=== PATIENT | female | born 1965 | race Caucasian/White ===

== ENCOUNTER 2017-10-18 16:08 | Emergency (ER) | payer OTHER | END 2017-10-18 17:50 | disposition home or self-care (01) | LOC: ER 16:08 | DX: J01.90 Acute sinusitis, unspecified (principal); J20.9 Acute bronchitis, unspecified; M43.6 Torticollis; M79.7 Fibromyalgia; K21.9 Gastro-esophageal reflux disease without esophagitis; E78.00 Pure hypercholesterolemia, unspecified; Z88.0 Allergy status to penicillin; Z88.2 Allergy status to sulfonamides; Z88.1 Allergy status to other antibiotic agents; Z88.5 Allergy status to narcotic agent | CPT/HCPCS: 99283 ==

== ENCOUNTER 2019-08-01 14:44 | Emergency (ER) | payer MEDICAID, OTHER ==
[~2019-08-01] VITALS: Ht 160 cm; Wt 54.4 kg
[~2019-08-01 14:44] MED LIST: BENZ100C PO; CLIN300C8 PO; CYCL10TA2 PO; DICL50TA4 PO; HYDR-3164 PO; NAPR-682 PO; PRED50TA PO
[2019-08-01 14:54] VITALS: BP 149/90
[2019-08-01] MEDS ORDERED: CLAR500T PO (15:20)
[2019-08-01] MEDS ORDERED: ALBU2.5V8 IH (15:20)
[2019-08-01] MEDS ORDERED: PRED50TA PO (15:20)
--- NOTE | 2019-08-01 15:21 | PHYS DOC ---
Past Medical History Past Medical History: Cancer, Fibromyalgia, GERD, High Cholesterol Additional Past Medical Histor: BREAST CANCER (CLIFF MORIN APRN) Past Surgical History: Appendectomy, Hysterectomy, Tubal ligation Additional Past Surgical Histo: RIGHT LYMPHECTOMY (CLIFF MORIN APRN) Alcohol Use: None Drug Use: None (CLIFF MORIN APRN) Attending Signature I have participated in the care of this patient and I have reviewed and agree with all pertinent clinical information above including history, exam, and recommendations. (GERALD ESPINOZA MD) Adult General Chief Complaint Chief Complaint: Congestion HPI HPI Patient is a 53 year old female who presents with cough and nasal congestion for 2 weeks. Patient states she's been trying [id number] remedies including Flonase and Zyrtec with no relief-reports symptoms are getting worse. She states she had a fever a week ago. (CLIFF MORIN APRN) Review of Systems Review of Systems Constitutional: Denies fever or chills [] Eyes: Denies change in visual acuity, redness, or eye pain [] HENT: Reports nasal congestion, denies sore throat [] Respiratory: Reports cough, denies shortness of breath [] Cardiovascular: No additional information not addressed in HPI [] GI: Denies abdominal pain, nausea, vomiting, bloody stools or diarrhea [] : Denies dysuria or hematuria [] Musculoskeletal: Denies back pain or joint pain [] Integument: Denies rash or skin lesions [] Neurologic: Denies headache, focal weakness or sensory changes [] All other systems were reviewed and found to be within normal limits, except as documented in this note. (CLIFF MORIN APRN) Allergies Allergies Allergies Coded Allergies Type Severity Reaction Last Updated Verified Penicillins Allergy Intermediate HIVES 08/08/16 Yes Sulfa (Sulfonamide Antibiotics) Allergy Intermediate HIVES 08/08/16 Yes amoxicillin Allergy Intermediate HIVES 08/08/16 Yes codeine Allergy Intermediate HIVES 08/08/16 Yes (GERALD ESPINOZA MD) Physical Exam Physical Exam Constitutional: Well developed, well nourished, no acute distress, non-toxic appearance. [] HENT: Normocephalic, atraumatic, bilateral external ears normal, oropharynx moist, no oral exudates, patient sounds congested nasally. Mild maxillary sinus tenderness on exam. Eyes: PERRLA, EOMI, conjunctiva normal, no discharge. [] Neck: Normal range of motion, no tenderness, supple, no stridor. [] Cardiovascular:Heart rate regular rhythm, no murmur [] Lungs & Thorax: Bilateral breath sounds clear to auscultation [] Abdomen: Bowel sounds normal, soft, no tenderness, no masses, no pulsatile masses. [] Skin: Warm, dry, no erythema, no rash. [] Back: No tenderness, no CVA tenderness. [] Extremities: No tenderness, no cyanosis, no clubbing, ROM intact, no edema. [] Neurologic: Alert and oriented X 3, normal motor function, normal sensory function, no focal deficits noted. [] Psychologic: Affect normal, judgement normal, mood normal. [] (CLIFF MORIN APRN) Current Patient Data Vital Signs Vital Signs Date Time Temp Pulse Resp B/P (MAP) Pulse Ox O2 Delivery O2 Flow Rate FiO2 08/01/19 14:54 98.6 98 17 149/90 (109) 98 Room Air 98.6 (GERALD ESPINOZA MD) EKG EKG [] (CLIFF MORIN APRN) Radiology/Procedures Radiology/Procedures [] (CLIFF MORIN APRN) Course & Med Decision Making Course & Med Decision Making Pertinent Labs and Imaging studies reviewed. (See chart for details) This is a 53-year-old female patient presenting to the ED today with acute sinusitis and bronchitis. Patient states she is allergic to multiple antibiotics. Will discharged on clarithromycin and prednisone. F/u with PCP next week (CLIFF MORIN APRN) Dragon Disclaimer Dragon Disclaimer This electronic medical record was generated, in whole or in part, using a voice recognition dictation system. (CLIFF MORIN APRN) Departure Departure Impression: Primary Impression: Acute bronchitis Additional Impression: Acute sinusitis Disposition: 01 HOME, SELF-CARE Condition: STABLE Referrals: JONO FRANCO MD (PCP) follow up next week Patient Instructions: Acute Bronchitis, [id number], Sinusitis Additional Instructions: You have acute sinusitis with bronchitis. Continue using Flonase and Zyrtec. Take the prescribed antibiotics until completed. Take the prescribed prednisone Pepcid and follow-up with your doctor next week. Scripts Albuterol Sulfate (Proair Hfa) 8.5 Gm Hfa.aer.ad 2 PUFF IH PRN Q4-6HRS PRN for wheezing for 21 Days, #1 INHALER 0 Refills Prov: CLIFF MORIN APRN 08/01/19 Prednisone (PREDNISONE) 50 Mg Tablet 1 TAB PO DAILY, #5 TAB Prov: CLIFF MORIN APRN 08/01/19 Clarithromycin (CLARITHROMYCIN) 500 Mg Tablet 1 TAB PO BID, #20 TAB Prov: CLIFF MORIN APRN 08/01/19 Problem Qualifiers Primary Impression: Acute bronchitis Bronchitis organism: unspecified organism Qualified Codes: J20.9 - Acute bronchitis, unspecified Additional Impression: Acute sinusitis Sinusitis location: maxillary Recurrence: non-recurrent Qualified Codes: J01.00 - Acute maxillary sinusitis, unspecified CLIFF MORIN APRN Aug 01, 2019 15:21 GERALD ESPINOZA MD Aug 02, 2019 06:12
== END 2019-08-01 15:32 | disposition home or self-care (01) ==
LOC: ER 14:44
DX: J20.9 Acute bronchitis, unspecified (principal); J01.00 Acute maxillary sinusitis, unspecified; E78.00 Pure hypercholesterolemia, unspecified; K21.9 Gastro-esophageal reflux disease without esophagitis; Z88.0 Allergy status to penicillin; Z88.1 Allergy status to other antibiotic agents; Z88.2 Allergy status to sulfonamides; Z88.5 Allergy status to narcotic agent
CPT/HCPCS: 99283